=== PATIENT | male | born 1980 | race Hispanic/Latino ===

== ENCOUNTER → 2025-02-14 | Outpatient (CLI) | payer BC ==
--- NOTE | 2025-02-16 17:21 | HMCSR ---
APPROVED REPORT EXAM: Two-dimensional and M-mode echocardiogram with Doppler and color Doppler. INDICATION ICD: R00.2 Palpitations 2D Dimensions RVDd3.9 cmLVEF(%)55.3 (>50%)LVED Vol(simp.)141.0 mL IVSd0.9 (0.7-1.1cm)FS(%)29 %LVES Vol(simp.)62.0 mL LVDd5.1 (3.8-5.6cm)Ao Root(2D)3.5 (2.0-3.7cm)LVEF(%, simp.)56 % PWd0.8 (0.7-1.1cm)LVOT diam2.4 (1.8-2.4cm)LA ESV INDEX (BP)21.73 mL/m2 LVDs3.6 (2.5-4.0cm)IVC diam1.7 cm Aortic Valve AoV Vmax1.0 m/Gibson Peak GR3.9 mmHgLVOT Vmax0.9 m/s AoV VTI0.2 mAo Mean GR2.1 mmHgLVOT VTI0.19 m SHANEKA (VMAX)4.7 cm2AVA (VTI) 4.7 cm2 Mitral Valve MV E Vmax52.8 cm/sDECEL Elcf717 ms MV A Vmax48.4 cm/sP 1/2 T74 ms E/A ratio1.1MVA (PHT)3.0 cm2 TDI E/E' Medial6.5E/E' Lateral5.1 Pulmonary Valve PV Vmax0.8 m/sPV VTI0.15 mPV Mean GR1 mmHg PV Peak GR2.4 mmHgPI End Koki. Yared 0.7 cm/s Tricuspid Valve TR Vmax2.3 m/sRAP (EST) 3 [id number] mmHg TR Peak GR21.8 mmHg Left Ventricle Left ventricular cavity size is normal. There is normal LV segmental wall motion. There is normal lef t ventricular wall thickness. LVEF is 55-60%. Left ventricular filling pattern is normal for age. Right Ventricle The right ventricle is normal size. The right ventricular systolic function is normal. Atria The left atrium size is normal. The right atrium size is normal. Aortic Valve Aortic valve is trileaflet. Aortic valve leaflets are sclerotic but open well. Trivial aortic regurgi tation. There is no aortic valvular stenosis. Mitral Valve Mitral valve leaflets appear normal. Mitral regurgitation is trace. There is no mitral valve stenosis . Tricuspid Valve The tricuspid valve leaflets appear normal. There is trace to mild tricuspid regurgitation. Pulmonic Valve Pulmonic valve is not well visualized. There is trace pulmonic valvular regurgitation. Great Vessels The aortic root is normal in size. The IVC is normal in size and collapses >50% with inspiration. Pericardium No pericardial effusion. Other Information Quality : Average Conclusion Left ventricular cavity size is normal. LVEF is 55-60% with normal LV segmental wall motion. Left ventricular filling pattern is normal for age. The right ventricular systolic function is normal. Both atria are normal in size. No hemodynamically significant valvular abnormalities. No pericardial effusion.
== END | disposition home or self-care (01) ==
LOC: SHCH 14:50
PROVIDERS: ATTEND Student in an Organized Health Care Education/Training Program
DX: I08.2 Rheumatic disorders of both aortic and tricuspid valves (principal); R00.2 Palpitations
CPT/HCPCS: 93306